=== PATIENT | male | born 1940 | race Caucasian/White ===

== ENCOUNTER 2019-12-30 05:53 | Emergency (ER) | payer MEDICARE, BC ==
[~2019-12-30] VITALS: Ht 167.6 cm; Wt 90.7 kg
[2019-12-30] MEDS ORDERED: ATOR80 PO (06:23)
[2019-12-30] MEDS ORDERED: DUTA.5 PO (06:23)
[2019-12-30] MEDS ORDERED: MOBIC15 MG PO (06:24)
[2019-12-30] MEDS ORDERED: LISI20 PO (06:24)
[2019-12-30] MEDS ORDERED: HYDROCHLOROTH12.5 MG PO (06:24)
[2019-12-30] MEDS ORDERED: EUTHYROX88 MCG PO (06:24)
[2019-12-30] MEDS ORDERED: TERA5 PO (06:25)
[2019-12-30] MEDS ORDERED: Flonase 0.05% N16 GM (06:25)
[2019-12-30] MEDS ORDERED: Percocet 5-3251 EACH PO (08:49)
== END 2019-12-30 09:07 | disposition home or self-care (01) ==
LOC: ER 05:53
DX: M47.812 Spondylosis without myelopathy or radiculopathy, cervical region (principal); M50.322 Other cervical disc degeneration at C5-C6 level; M48.02 Spinal stenosis, cervical region; I10 Essential (primary) hypertension; E03.9 Hypothyroidism, unspecified; Z91.048 Other nonmedicinal substance allergy status; Z79.899 Other long term (current) drug therapy
CPT/HCPCS: 72040; 72125; 99284-25

== ENCOUNTER → 2022-10-04 | Outpatient (CLI) | payer MEDICARE, BC ==
[~2022-10-04] MED LIST: ATOR80 PO; DUTA.5 PO; EUTHYROX88 MCG PO; Flonase 0.05% N16 GM; HYDROCHLOROTH12.5 MG PO; LISI20 PO; MOBIC15 MG PO; Percocet 5-3251 EACH PO; TERA5 PO
== END | disposition home or self-care (01) ==
LOC: LAB 10:00 → LAB SHORT 10:00
DX: N39.0 Urinary tract infection, site not specified (principal)
CPT/HCPCS: 87077; 87086; 87186